=== PATIENT | female | born 1940 | race Caucasian/White ===

== ENCOUNTER 2019-03-07 11:00 | Emergency (ER) | payer OTHER, MEDICARE ==
[~2019-03-07] VITALS: Ht 167.6 cm; Wt 81.7 kg
[2019-03-07] MEDS ORDERED: NORCO 5-325 TA1 EAC1 PO (12:08)
[2019-03-07 12:50] VITALS: BP 138/76
== END 2019-03-07 12:37 | disposition home or self-care (01) ==
LOC: ER 11:00
DX: S92.351A Displaced fracture of fifth metatarsal bone, right foot, initial encounter for closed fracture (principal); Z88.6 Allergy status to analgesic agent; W10.9XXA Fall (on) (from) unspecified stairs and steps, initial encounter; Y93.89 Activity, other specified; Y92.89 Other specified places as the place of occurrence of the external cause; Y99.8 Other external cause status